=== PATIENT | male | born 1975 | race Caucasian/White ===

== ENCOUNTER 2017-04-03 11:28 | Emergency (ER) | payer BC, OTHER ==
[~2017-04-03] VITALS: Ht 180.3 cm; Wt 79.4 kg
[2017-04-03 11:29] VITALS: BP 125/82
[2017-04-03] MEDS ORDERED: CELEXA20 MG PO (11:36)
[2017-04-03] MEDS ORDERED: CLONAZEPAM 0.50.5 M1 PO ×2 (11:37→13:20)
== END 2017-04-03 13:43 | disposition home or self-care (01) ==
LOC: ER 11:28
DX: Z76.0 Encounter for issue of repeat prescription (principal); F41.9 Anxiety disorder, unspecified; F32.9 Major depressive disorder, single episode, unspecified